=== PATIENT | female | born 1985 | race Caucasian/White ===

== ENCOUNTER 2016-12-11 15:22 | Emergency (ER) | payer BC, OTHER ==
[2016-12-11 15:43] VITALS: BMI 25.8
--- NOTE | 2016-12-11 15:51 | DR.GENAD ---
HPI - PCP Primary Care Physician: WINTER - Complaint/Symptoms Chief Complaint Doctors Comments: Patient admits to diarrhea since yesterday. Admits to low grade temp. Chief Complaint:: PATIENT WAS SEEN BY HER PCP TODAY AND SHE WAS TOLD TO COME TO THE ER CAUSE SHE MAY HAVE APPENDITICIS - Source History Provided: Patient, Family Member - Mode of Arrival Mode of Arrival: Ambulatory - Timing Onset of Chief Complaint: 12/08/16 PMH - PMH Past Medical History: Yes Past Medical History: Asthma Past Surgical History: Yes Surgical History: Abdominal Surgery, , Cholecystectomy, Tonsillectomy - Family History History of Family Medical Conditions: Yes Family Medical History: Diabetes Mellitus - Social History Does patient currently use any type of tobacco product: No Have you used tobacco products in the last 12 months: No Type of Tobacco Use: None Does any household member use tobacco: Yes Alcohol Use: None Do you use any recreational Drugs:: No Lives With: Family Lives Where: Home - infectious screening In the last 2 months have you had wt loss of >10#?: NO Have you had fever, night sweats or hemotysis?: No Have you traveled outside the country in the last 6 months?: No Isolation: Standard ROS - Review of Systems Constitutional: No Symptoms Reported Eyes: No Symptoms Reported ENTM: No Symptoms Reported Respiratoy: No Symptoms Reported Cardiovascular: No Symptoms Reported Gastrointestinal/Abdominal: No Symptoms Reported, See HPI, Abdominal Pain, Nausea, Vomiting Genitourinary: No Symptoms Reported Neurological: No Symptoms Reported Musculoskeletal: No Symptoms Reported Integumentary: No Symptoms Reported Hematologic/Lymphatic: No Symptoms Reported Endocrine: No Symptoms Reported Psychiatric: No Symptoms Reported All Other Systems: Reviewed and Negative PE - Vital Signs Vitals: Temperature 99.5 F Pulse Rate 108 Respiratory Rate 18 Blood Pressure [Right Arm] 100/57 Blood Pressure [Left Arm] 110/66 Blood Pressure 134/89 O2 Sat by Pulse Oximetry 99 - General Limitations: No Limitations General Appearance: Alert, In No Apparent Distress - Head Head Exam: Normal Inspection, Atraumatic - Eyes Eye exam: Normal Appearance, PERRL, EOMI - ENT ENT Exam: Normal Exam, Normal Oropharynx Course - Reevaluation 1st: Unchanged ROR - Labs Reviewed Result Diagrams: 12/11/16 16:30 12/11/16 16:30 Laboratory: WBC 7.0 X10^3/uL (3.6-10.0) 12/11/16 16:30 RBC 4.16 X10^6/uL (3.5-5.4) 12/11/16 16:30 Hgb 11.4 g/dL (12.0-16.0) L 12/11/16 16:30 Hct 34.2 % (36.0-47.0) L 12/11/16 16:30 MCV 82.1 fL (80.0-100.0) 12/11/16 16:30 MCH 27.3 pg (27.0-34.0) 12/11/16 16:30 MCHC 33.2 g/dL (33.0-35.0) 12/11/16 16:30 RDW 13.7 % (11.6-16.5) 12/11/16 16:30 Plt Count 219 X10^3/uL (150.0-450.0) 12/11/16 16:30 MPV 9.8 fL (7.4-11.0) 12/11/16 16:30 Neut % 72.8 % (42.0-75.0) 12/11/16 16:30 Lymph % 18.5 % (21.0-51.0) L 12/11/16 16:30 Beckham % 7.4 % (0.0-13.0) 12/11/16 16:30 Eos % 0.5 % (0.9-2.9) L 12/11/16 16:30 Baso % 0.8 % (0.2-1.0) 12/11/16 16:30 Neut # 5.1 x10^3/uL (2.2-4.8) H 12/11/16 16:30 Lymph # 1.3 X10^3/uL (1.3-2.9) 12/11/16 16:30 Beckham # 0.5 x10^3/uL (0.3-0.8) 12/11/16 16:30 Eos # 0.0 x10^3/uL (0.0-0.2) 12/11/16 16:30 Baso # 0.1 X10^3/uL (0.0-0.1) 12/11/16 16:30 Absolute Nucleated RBC 0.0 /100WBC 12/11/16 16:30 Sodium 139 mmol/L (136-145) 12/11/16 16:30 Corrected Sodium TNP 12/11/16 16:30 Potassium 3.8 mmol/L (3.5-5.1) 12/11/16 16:30 Chloride 104 mmol/L (98-107) 12/11/16 16:30 Carbon Dioxide 27.2 mmol/L (21-32) 12/11/16 16:30 BUN 10 mg/dL (7-18) 12/11/16 16:30 Creatinine 0.69 mg/dL (0.55-1.02) 12/11/16 16:30 Est GFR (MDRD) Af Amer > 60 (>60) 12/11/16 16:30 Est GFR (MDRD) Non-Af > 60 (>60) 12/11/16 16:30 Glucose 88 mg/dL (65-99) 12/11/16 16:30 Calcium 8.4 mg/dL (8.5-10.1) L 12/11/16 16:30 Corrected Calcium TNP 12/11/16 16:30 Total Bilirubin 0.40 mg/dL (0.2-1.0) 12/11/16 16:30 AST 14 Units/L (15-37) L 12/11/16 16:30 ALT 21 Units/L (12-78) 12/11/16 16:30 Alkaline Phosphatase 83 Units/L (46-116) 12/11/16 16:30 C-Reactive Protein 2.40 mg/L (0-3.0) 12/11/16 16:30 Total Protein 7.8 g/dL (6.4-8.2) 12/11/16 16:30 Albumin 3.6 g/dL (3.4-5.0) 12/11/16 16:30 Globulin 4.2 g/dL (2.5-4.5) 12/11/16 16:30 Albumin/Globulin Ratio 0.9 Ratio (1.1-2.1) L 12/11/16 16:30 Specimen Type Clean catch urine 12/11/16 15:54 Urine Color Yellow (YELLOW) 12/11/16 15:54 Urine Appearance Clear (CLEAR) 12/11/16 15:54 Urine pH 5.0 (5.0 - 8.0) 12/11/16 15:54 Ur Specific [place] 1.020 (1.000-1.030) 12/11/16 15:54 Urine Protein Negative (NEGATIVE) 12/11/16 15:54 Urine Glucose (UA) Negative (NEGATIVE) 12/11/16 15:54 Urine Ketones Negative (NEGATIVE) 12/11/16 15:54 Urine Occult Blood 5+ (NEGATIVE) 12/11/16 15:54 Urine Nitrite Negative (NEGATIVE) 12/11/16 15:54 Urine Bilirubin Negative (NEGATIVE) 12/11/16 15:54 Urine Urobilinogen Normal (NORMAL) 12/11/16 15:54 Ur Leukocyte Esterase Negative (NEGATIVE) 12/11/16 15:54 Urine RBC Tntc /HPF (NEGATIVE) 12/11/16 15:54 Urine WBC None seen /HPF (NEGATIVE) 12/11/16 15:54 Ur Squamous Epith Cells Rare /HPF (NEGATIVE) 12/11/16 15:54 Urine Bacteria Negative /HPF (NEGATIVE) 12/11/16 15:54 Ur Culture Indicated? No/not indicated 12/11/16 15:54 - XRAY XRAY Interpreted by: Radiologist (Prominent appendix, with the appendix located posteriorly at the midline. This is nonspecific but early acute appendicitis is not excluded. Nonobstructing bilateral lower pole daniela stones without hydroureteronephrosis. Left ovarian cyst. 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
[2016-12-11] MEDS ORDERED: DEMEROL INJ IVP ONE ×2 (16:16→20:53)
[2016-12-11] MEDS ORDERED: PHENERGAN INJ 25 MG IV ONE (16:17)
[2016-12-11 16:20] LABS: BILIRUBIN,URINE NEGATIVE (NEGATIVE); BLOOD/HEMOGLOBIN,URINE 5+ (NEGATIVE); GLUCOSE, URINE NEGATIVE (NEGATIVE); KETONES,URINE NEGATIVE (NEGATIVE); LEUKOCYTE ESTERASE ,URINE NEGATIVE (NEGATIVE); NITRITES,URINE NEGATIVE (NEGATIVE); PROTEIN,URINE NEGATIVE (NEGATIVE); UROBILINOGEN,URINE NORMAL (NORMAL)
[2016-12-11] MEDS ORDERED: PHENERGAN INJ 25 MG ONE (16:28)
[2016-12-11] MEDS ORDERED: DEMEROL INJ ONE ×2 (16:29→20:55)
[2016-12-11] MEDS ORDERED: NS 1000 ML 1,000 ML ONE (16:32)
[2016-12-11 16:38] LABS: APPEARANCE,URINE CLEAR (CLEAR); BACTERIA,URINE NEGATIVE /HPF (NEGATIVE); COLOR,URINE YELLOW (YELLOW); RBC,URINE TNTC /HPF (NEGATIVE); SQUAMOUS EPITHELIAL CELL,UR RARE /HPF (NEGATIVE)
[2016-12-11 16:44] LABS: BASOPHILS # (AUTO) 0.1 X10^3/uL (0.0-0.1); BASOPHILS % (AUTO) 0.8 % (0.2-1.0); EOSINOPHILS % (AUTO) 0.5 % (0.9-2.9); HEMATOCRIT 34.2 % (36.0-47.0); HEMOGLOBIN 11.4 g/dL (12.0-16.0); LYMPHOCYTES # (AUTO) 1.3 X10^3/uL (1.3-2.9); LYMPHOCYTES % (AUTO) 18.5 % (21.0-51.0); MEAN CORPUSCULAR HEMOGLOBIN 27.3 pg (27.0-34.0); MEAN CORPUSCULAR HGB CONC 33.2 g/dL (33.0-35.0); MEAN CORPUSCULAR VOLUME 82.1 fL (80.0-100.0); MEAN PLATELET VOLUME 9.8 fL (7.4-11.0); MONOCYTES # (AUTO) 0.5 x10^3/uL (0.3-0.8); MONOCYTES % (AUTO) 7.4 % (0.0-13.0); NEUTROPHILS # (AUTO) 5.1 x10^3/uL (2.2-4.8); NEUTROPHILS % (AUTO) 72.8 % (42.0-75.0); PLATELET COUNT 219 X10^3/uL (150.0-450.0); RED BLOOD COUNT 4.16 X10^6/uL (3.5-5.4); RED CELL DISTRIBUTION WIDTH 13.7 % (11.6-16.5)
[2016-12-11] MEDS ORDERED: NS 1000 ML 1,000 ML IV SCH (17:00)
[2016-12-11 17:03] LABS: ALANINE AMINOTRANSFERASE 21 Units/L (12-78); ALBUMIN 3.6 g/dL (3.4-5.0); ALKALINE PHOSPHATASE 83 Units/L (46-116); ASPARTATE AMINO TRANSFERASE 14 Units/L (15-37); BLOOD UREA NITROGEN 10 mg/dL (7-18); CALCIUM 8.4 mg/dL (8.5-10.1); CARBON DIOXIDE 27.2 mmol/L (21-32); CHLORIDE 104 mmol/L (98-107); CREATININE 0.69 mg/dL (0.55-1.02); GLUCOSE 88 mg/dL (65-99); SODIUM 139 mmol/L (136-145); TOTAL PROTEIN 7.8 g/dL (6.4-8.2); eGFR BLACK RACES > 60 (>60); eGFR NON BLACK RACES > 60 (>60)
[2016-12-11] MEDS ORDERED: ZOFRAN INJ 4 MG VIAL IVP ONE (18:38)
[2016-12-11] MEDS ORDERED: ZOFRAN INJ 4 MG VIAL ONE (18:39)
[2016-12-11] MEDS ORDERED: NS 100 ML IV 100 ML IV ONE (20:00)
--- NOTE | 2016-12-11 20:53 | CT ---
CT abdomen and pelvis with contrast Indication: Right lower quadrant pain. Rule out appendicitis. Comparison: August 01, 2015 CT. Technique: Helical images through the abdomen and pelvis after IV contrast. Coronal and sagittal ref ormats provided. Oral contrast given. Findings: Limited images through lower chest shows no acute abnormality. Review of bone windows show s no destructive osseous lesion. Abdomen: Gastric bypass changes are noted. The gallbladder is absent. The liver, spleen, pancreas, a nd adrenal glands are normal. Nonobstructing renal stones noted bilaterally . Contrast enters the sm all bowel without obstruction. No acute colonic abnormality seen. Vasculature is normal. Pelvis: Urinary bladder and rectum are normal. Uterus and adnexa show no acute abnormality with left adnexal cyst noted. The appendix is located at the midline measuring 7 mm the tip but without surro unding stranding. Impression: 1. Prominent appendix, with the appendix located posteriorly at the midline. This is nonspecific but early acute appendicitis is not excluded. 2. Nonobstructing bilateral lower pole renal stones without hydroureteronephrosis. 3. Left ovarian cyst. 4. 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
[2016-12-11 22:16] VITALS: BP 131/78
== END 2016-12-11 22:11 | disposition home or self-care (01) ==
LOC: ER 15:39
DX: K35.89 Other acute appendicitis (principal); N83.202 Unspecified ovarian cyst, left side; N20.0 Calculus of kidney
CPT/HCPCS: 36415; 74177; 80053; 81001; 85025; 86140; 96365; 96367; 96374; 96375; 99283; A4222; J2175; J2405; J2550

== ENCOUNTER → 2017-05-01 | Outpatient (CLI) | payer BC ==
[2017-05-01 10:30] LABS: HEMOGLOBIN A1C 5.8 % (4.5-6.2)
[2017-05-01 10:36] LABS: ALANINE AMINOTRANSFERASE 21 Units/L (12-78); ALBUMIN 3.9 g/dL (3.4-5.0); ALKALINE PHOSPHATASE 80 Units/L (46-116); ASPARTATE AMINO TRANSFERASE 17 Units/L (15-37); BASOPHILS # (AUTO) 0.1 X10^3/uL (0.0-0.1); BASOPHILS % (AUTO) 1.2 % (0.2-1.0); BLOOD UREA NITROGEN 9 mg/dL (7-18); CALCIUM 9.2 mg/dL (8.5-10.1); CHLORIDE 106 mmol/L (98-107); EOSINOPHILS # (AUTO) 0.2 x10^3/uL (0.0-0.2); EOSINOPHILS % (AUTO) 3.6 % (0.9-2.9); GLUCOSE 87 mg/dL (65-99); HEMATOCRIT 36.1 % (36.0-47.0); HEMOGLOBIN 11.6 g/dL (12.0-16.0); LYMPHOCYTES # (AUTO) 2.3 X10^3/uL (1.3-2.9); LYMPHOCYTES % (AUTO) 41.2 % (21.0-51.0); MEAN CORPUSCULAR HEMOGLOBIN 25.4 pg (27.0-34.0); MEAN CORPUSCULAR HGB CONC 32.2 g/dL (33.0-35.0); MEAN PLATELET VOLUME 10.8 fL (7.4-11.0); MONOCYTES # (AUTO) 0.4 x10^3/uL (0.3-0.8); MONOCYTES % (AUTO) 6.7 % (0.0-13.0); NEUTROPHILS # (AUTO) 2.6 x10^3/uL (2.2-4.8); NEUTROPHILS % (AUTO) 47.3 % (42.0-75.0); PLATELET COUNT 216 X10^3/uL (150.0-450.0); RED BLOOD COUNT 4.57 X10^6/uL (3.5-5.4); RED CELL DISTRIBUTION WIDTH 14.3 % (11.6-16.5); SODIUM 141 mmol/L (136-145); TOTAL PROTEIN 7.9 g/dL (6.4-8.2); WHITE BLOOD COUNT 5.5 X10^3/uL (3.6-10.0); eGFR BLACK RACES > 60 (>60); eGFR NON BLACK RACES > 60 (>60)
[2017-05-01 10:43] LABS: HCG,QUANTITATIVE < 1 mIU/mL (0-6)
[2017-05-01 11:08] LABS: PLATELET MORPHOLOGY COMMENT NORMAL (NORMAL)
== END ==
LOC: LAB 09:44
PROVIDERS: ATTEND Nurse Practitioner Family
DX: R53.83 Other fatigue (principal)
CPT/HCPCS: 36415; 80053; 83036; 84702; 85025